=== PATIENT | male | born 1985 | race Caucasian/White ===

== ENCOUNTER 2017-11-22 22:33 | Emergency (ER) | payer BC ==
[2017-11-22 22:39] VITALS: BP 140/95; PULSE 104; TEMP 98; BMI 35.9
[2017-11-22] MEDS ORDERED: DIPHTH,PERTUSS(ACELL),TET 0.5 ML DISP.SYRIN IM ONE (22:56)
--- NOTE | 2017-11-22 22:56 | PDOC ---
History of Present Illness - General Chief Complaint: Laceration Stated Complaint: LACERATION Time Seen by Provider: 11/22/17 22:53 History Source: Patient Past History - Past Medical History Allergies/Adverse Reactions: Allergies Allergy/AdvReac Type Severity Reaction Status Date / Time No Known Allergies Allergy Verified 11/22/17 22:39 Home Medications: Ambulatory Orders Cephalexin Monohydrate [Keflex -] 500 mg PO BID #10 capsule 11/22/17 COPD: No - Suicide/Smoking/Psychosocial Hx Smoking History: Never smoked *Physical Exam - Vital Signs Last Vital Signs Temp Pulse Resp BP Pulse Ox 98.0 F 104 H 140/95 97 11/22/17 22:37 11/22/17 22:37 11/22/17 22:37 11/22/17 22:37 Procedures - Laceration/Wound Repair Left Finger Wound Length: to 2.5 cm Wound's Depth, Shape: flap Irrigated w/ Saline: Yes Betadine Prep: Yes Anesthesia: 1% Lidocaine Amount of Anesthetic (ccs): 1 Wound Debrided: minimal Wound Repaired With: Dermabond Suture Size/Type: 6:0 Number of Sutures: 5 Splint Applied: Yes (finger splint) *DC/Admit/Observation/Transfer Diagnosis at time of Disposition: Laceration of finger of left hand Qualifiers: Encounter type: initial encounter Finger: little finger Damage to nail status: without damage Foreign body presence: without foreign body Qualified Code(s): S61.217A - Laceration without foreign body of left little finger without damage to nail, initial encounter - Discharge Dispostion Disposition: HOME - Prescriptions Prescriptions: Cephalexin Monohydrate [Keflex -] 500 mg PO BID #10 capsule - Referrals - Patient Instructions Printed Discharge Instructions: How to Use a Sling, DI for Laceration Repair Additional Instructions: keep wound clean and dry take cephalexin as prescribed. return to the ER for suture removal in 7- 10 days follow up with the doctor sooner for a wound check if signs of infection, increased pain, pus drainage - Post Discharge Activity Forms/Work/School Notes: Back to Work
== END 2017-11-22 23:38 | disposition home or self-care (01) ==
LOC: JERFT 22:33
PROC: 0HQGXZZ Repair Left Hand Skin, External Approach (ICD-10-PCS; principal; 2017-11-22)
PROC: 3E0234Z Introduction of Serum, Toxoid and Vaccine into Muscle, Percutaneous Approach (ICD-10-PCS; 2017-11-22)
DX: S61.217A Laceration without foreign body of left little finger without damage to nail, initial encounter (principal); W26.0XXA Contact with knife, initial encounter; Y93.G1 Activity, food preparation and clean up; Y92.89 Other specified places as the place of occurrence of the external cause
CPT/HCPCS: 90715; 99281-25

== ENCOUNTER 2022-07-06 11:37 | Observation (INO) | payer BC, OTHER ==
[2022-07-06] MEDS ORDERED: SODIUM CHLORIDE 0.9% 500 ML INFUS.BAG IV ONE (11:51)
[2022-07-06] MEDS ORDERED: LORazepam 2 MG/ML SDV VIAL IVPB ONE (12:08)
[2022-07-06 12:52] LABS: BASO % 0.4 % (0-2.0); EOS % 0.2 % (0-4.5); HEMATOCRIT 44.7 % (35.4-49); HEMOGLOBIN 15.7 GM/dL (11.7-16.9); LYMPH % 13.6 % (8-40); MCH 31.7 pg (25.7-33.7); MCHC 35.1 g/dl (32.0-35.9); MEAN CELL VOLUME 90.2 fl (80-96); MEAN PLT VOLUME 10.2 fl (7.5-11.1); MONO % 8.7 % (3.8-10.2); NEUT % 77.1 % (42.8-82.8); PLATELET COUNT 170 10^3/uL (134-434); RBC 4.96 M/mm3 (4.00-5.60); RDW 12.5 % (11.9-15.9); WHITE BLOOD COUNT 7.2 K/mm3 (4.0-10.0)
[2022-07-06 12:56] LABS: INR 1.03 (0.83-1.09)
[2022-07-06 12:59] LABS: ACTIVATED PTT 28.5 SECONDS (25.2-36.5)
[2022-07-06 13:12] LABS: POTASSIUM 3.6 mmol/L (3.5-5.1)
[2022-07-06 13:15] LABS: CALCIUM 9.1 mg/dL (8.5-10.1)
[2022-07-06 13:16] LABS: ALBUMIN 3.8 g/dl (3.4-5.0); BLOOD UREA NITROGEN 15.9 mg/dL (7-18); MAGNESIUM 1.5 mg/dL (1.8-2.4)
[2022-07-06 13:19] LABS: CREATININE 1.2 mg/dL (0.55-1.3)
[2022-07-06 13:21] LABS: BILIRUBIN,TOTAL 1.8 mg/dL (0.2-1); TOT PROT 7.2 g/dl (6.4-8.2)
[2022-07-06] MEDS ORDERED: SODIUM CHLORIDE 0.9% 1000 ML INFUS.BAG IV ONE (13:50)
[2022-07-06] MEDS ORDERED: MAGNESIUM SULF 50% (8.12 MEQ/2 ML-1 GM VIAL) IVPB ONE (13:51)
[2022-07-06] MEDS ORDERED: MELATONIN 5 MG TABLETS PO ONE (22:11)
[2022-07-06] MEDS ORDERED: LORazepam 1 MG TABLET PO PRN (22:28)
[2022-07-07 00:14] LABS: BILIRUBIN,DIRECT 0.6 mg/dL (0.0-0.2)
[2022-07-07 01:06] VITALS: BMI 39.0
[2022-07-07 06:25] LABS: BASO % 0.5 % (0-2.0); EOS % 0.9 % (0-4.5); HEMATOCRIT 41.7 % (35.4-49); HEMOGLOBIN 15.1 GM/dL (11.7-16.9); LYMPH % 30.7 % (8-40); MCH 32.8 pg (25.7-33.7); MCHC 36.2 g/dl (32.0-35.9); MEAN CELL VOLUME 90.6 fl (80-96); MEAN PLT VOLUME 10.5 fl (7.5-11.1); MONO % 10.5 % (3.8-10.2); NEUT % 57.4 % (42.8-82.8); PLATELET COUNT 142 10^3/uL (134-434); RDW 12.2 % (11.9-15.9); WHITE BLOOD COUNT 4.8 K/mm3 (4.0-10.0)
[2022-07-07 06:51] LABS: CALCIUM 8.5 mg/dL (8.5-10.1)
[2022-07-07 06:52] LABS: ALBUMIN 3.2 g/dl (3.4-5.0); CHOLESTEROL 163 mg/dL (50-200); MAGNESIUM 2.1 mg/dL (1.8-2.4)
[2022-07-07 06:54] LABS: LDL CHOLESTEROL (ONLY SJRH) 63 mg/dL (5-100); PHOSPHOROUS 3.4 mg/dL (2.5-4.9); URIC ACID 9.8 mg/dL (2.6-7.2)
[2022-07-07 06:55] LABS: HDL CHOLESTEROL 85 mg/dL (40-60)
[2022-07-07 06:56] LABS: TOT PROT 6.4 g/dl (6.4-8.2)
[2022-07-07 07:42] LABS: COCAINE, UR NEGATIVE (NEGATIVE); METHADONE, UR NEGATIVE (NEGATIVE); OPIATES, URI NEGATIVE (NEGATIVE); PHENCYCLIDINE,URINE NEGATIVE (NEGATIVE); URINE AMPHETAMINES NEGATIVE (NEGATIVE); URINE BENZODIAZEPINES NEGATIVE (NEGATIVE)
[2022-07-07 07:43] LABS: URINE BARBITURATES NEGATIVE (NEGATIVE)
[2022-07-07 08:49] LABS: PH,URINE 6.5 (5.0-8.0); URINE APPEARANCE CLEAR; URINE BILIRUBIN NEGATIVE (NEGATIVE); URINE COLOR ORANGE; URINE GLUCOSE (UA) NEGATIVE (NEGATIVE); URINE KETONE 1+ (NEGATIVE); URINE LEUK ESTERASE NEGATIVE (NEGATIVE); URINE NITRITE NEGATIVE (NEGATIVE); URINE PROTEIN NEGATIVE (NEGATIVE)
[2022-07-07] MEDS: ENOXAPARIN NA (PORCINE) 40 MG/0.4 ML DISP.SYRIN SQ SCH (10:17)
[2022-07-07] MEDS ORDERED: THIAMINE HCL 100 MG TABLET (FP) PO ONE (12:52)
[2022-07-07] MEDS: amLODIPine BESYLATE 2.5 MG TABLET (FP) PO SCH (16:42)
[2022-07-07] MEDS ORDERED: MELATONIN 5 MG TABLETS PO ONE (20:39)
[2022-07-07] MEDS ORDERED: MELATONIN 5 MG TABLETS PO PRN (20:39)
[2022-07-08 05:56] VITALS: TEMP 98
[2022-07-08 06:42] LABS: HEMATOCRIT 40.8 % (35.4-49); HEMOGLOBIN 14.6 GM/dL (11.7-16.9); MCH 32.5 pg (25.7-33.7); MCHC 35.7 g/dl (32.0-35.9); MEAN CELL VOLUME 90.9 fl (80-96); MEAN PLT VOLUME 9.9 fl (7.5-11.1); PLATELET COUNT 138 10^3/uL (134-434); RBC 4.49 M/mm3 (4.00-5.60); RDW 12.3 % (11.9-15.9); WHITE BLOOD COUNT 4.4 K/mm3 (4.0-10.0)
[2022-07-08 06:55] LABS: POTASSIUM 3.9 mmol/L (3.5-5.1)
[2022-07-08 06:57] LABS: BLOOD UREA NITROGEN 8.7 mg/dL (7-18)
[2022-07-08 06:58] LABS: ALBUMIN 3.2 g/dl (3.4-5.0)
[2022-07-08 07:01] LABS: CREATININE 1.1 mg/dL (0.55-1.3); PHOSPHOROUS 4.1 mg/dL (2.5-4.9)
[2022-07-08 07:02] LABS: BILIRUBIN,TOTAL 1.4 mg/dL (0.2-1); TOT PROT 6.4 g/dl (6.4-8.2)
[2022-07-08 09:24] VITALS: BP 151/99; PULSE 109; RESP 16
[2022-07-08] MEDS: ENOXAPARIN NA (PORCINE) 40 MG/0.4 ML DISP.SYRIN SQ SCH (09:43)
[2022-07-08] MEDS: amLODIPine BESYLATE 2.5 MG TABLET (FP) PO SCH (09:44)
== END 2022-07-08 11:50 | disposition home or self-care (01) ==
LOC: JER 11:37 → JERBED 19:30 → J4S 21:25
PROVIDERS: ADMIT Internal Medicine; ATTEND Internal Medicine
PROC: 3E023GC Introduction of Other Therapeutic Substance into Muscle, Percutaneous Approach (ICD-10-PCS; principal; 2022-07-06)
PROC: 3E0333Z Introduction of Anti-inflammatory into Peripheral Vein, Percutaneous Approach (ICD-10-PCS; 2022-07-06)
PROC: 3E033GC Introduction of Other Therapeutic Substance into Peripheral Vein, Percutaneous Approach (ICD-10-PCS; 2022-07-06)
PROC: 3E0337Z Introduction of Electrolytic and Water Balance Substance into Peripheral Vein, Percutaneous Approach (ICD-10-PCS; 2022-07-06)
DX: R00.0 Tachycardia, unspecified (principal); R94.5 Abnormal results of liver function studies; I10 Essential (primary) hypertension; E66.8 Other obesity; Z68.39 Body mass index [BMI] 39.0-39.9, adult
CPT/HCPCS: 0241U-QW; 36415; 70450-TC; 71045-TC-FY; 71275-TC; 76705-TC; 80053; 80061; 80307; 81003; 82248; 83036; 83735; 84100; 84443; 84484; 84550; 85025; 85027; 85610; 85730; 86705; 86803; 87340; 87517; 93005; 93010; 93306-TC; 96372; 96374; 96375; 99285-25; G0378; Q9967

== ENCOUNTER 2022-11-15 09:51 | Emergency (ER) | payer OTHER, BC ==
[2022-11-15 10:03] VITALS: BP 131/99; PULSE 97; RESP 16; TEMP 99; BMI 37.3
[2022-11-15] MEDS ORDERED: NAPROXEN 500 MG TABLET PO ONE (10:57)
[2022-11-15] MEDS ORDERED: NAPROXEN 500 MG TABLET ONE (11:22)
== END 2022-11-15 11:29 | disposition home or self-care (01) ==
LOC: FER 09:51
DX: M79.602 Pain in left arm (principal); X50.0XXA Overexertion from strenuous movement or load, initial encounter
CPT/HCPCS: 73030-TC-LT-FY; 73070-TC-LT-FY; 99283-25